=== PATIENT | female | born 1980 | race Caucasian/White ===

== ENCOUNTER → 2024-02-12 08:45 | Outpatient (CLI) | payer OTHER, MEDICAID, SELFPAY ==
--- NOTE | 2024-02-12 08:48 | DI.RAD.S_ITS ---
PROCEDURE: FL SHOULDER INJECTION MR/CT RT INDICATIONS: SHOULDER TRAUMA/ROTATOR CUFF TEAR SUSPECTED COMPARISON: None. TECHNIQUE: The indications, alternatives, benefits, risks, and complications of the procedure were explained to the patient. Written informed consent was obtained and placed in the chart. The shoulder was examined fluoroscopically and a site for needle placement chosen for entry into the glenohumeral joint from an anterior approach. The skin was prepped and draped in a sterile fashion, and 1% lidocaine infiltrated from skin down to joint capsule. A spinal needle was inserted into the glenohumeral joint, and a small amount of iodinated contrast media injected to confirm intra-articular placement of the needle tip. This was followed by approximately 12 mL dilute solution of a gadolinium containing MR contrast agent. The needle was removed and a dressing was applied. The patient was given postprocedural instructions and sent to the MR suite for MR imaging. FINDINGS: A single fluoroscopic spot image demonstrates intra-articular location of injected iodinated contrast. IMPRESSION: Successful fluoroscopically guided administration of dilute Gadolinium solution into the shoulder joint for MR arthrogram. Dictated by: Geovanni Gooden M.D. on 02/12/2024 at 15:19 Approved by: Geovanni Gooden M.D. on 02/12/2024 at 15:19
--- NOTE | 2024-02-12 08:48 | DI.MRI.S_ITS ---
PROCEDURE: MR SHOULDER RT W CON INDICATIONS: SHOULDER TRAUMA/ROTATOR CUFF TEAR SUSPECTED TECHNIQUE: After the administration of 12 mL of dilute intra-articular Gadolinium contrast, oblique coronal T1 and T2 spin echo with fat saturation, oblique sagittal T1 spin echo with and without fat saturation, oblique sagittal T2 fast spin echo with fat saturation, axial T1 spin echo with fat saturation through the shoulder. COMPARISON: [facility], MR, MR SHOULDER RIGHT ARTHROGRAM, 08/08/2023, 8:22. FINDINGS: Image quality: Excellent. Rotator cuff: There is no change in moderate grade intrasubstance and articular surface tearing of the posterior supraspinatus tendon at the humeral insertion site extending to the musculotendinous junction. Low-grade bursal surface tearing of the mid infraspinatus tendon at the humeral insertion site extending the musculotendinous junction. Subscapularis and teres minor tendons are intact. No rotator cuff atrophy. Bones and bursae: No bone marrow contusions or fractures. Moderate glenohumeral and acromioclavicular joint degeneration. The acromion demonstrates conventional anatomy, without an os acromiale. Capsule and soft tissues: There is diffuse degenerative fraying of the glenoid labrum. There is undercutting of the anteroinferior labrum, as before. Reimplanted biceps tendon appears intact. The rotator interval appears normal, without fibrosis. The coracohumeral ligament is of normal thickness. No intra-articular bodies. IMPRESSION: 1. Findings suggestive of anteroinferior glenoid labral tearing. 2. No significant change in partial-thickness tearing of the supraspinatus and infraspinatus tendons. No full-thickness rotator cuff tear. 3. Acromioclavicular and glenohumeral joint osteoarthritis. 4. Intact postsurgical appearance of the biceps tendon. Dictated by: Kylah Anthony M.D. on 02/12/2024 at 12:45 Approved by: Kylah Anthony M.D. on 02/12/2024 at 12:49
== END ==
PROVIDERS: Referring Provider Orthopaedic Surgery; Visit Provider Orthopaedic Surgery
DX: M75.111 Incomplete rotator cuff tear or rupture of right shoulder, not specified as traumatic (principal); M19.011 Primary osteoarthritis, right shoulder; M25.511 Pain in right shoulder; G89.29 Other chronic pain
CPT/HCPCS: 23350; 73040; 73222; A9579